=== PATIENT | male | born 2000 | race Caucasian/White ===

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

== ENCOUNTER 2020-01-28 00:18 | Emergency (ER) | payer OTHER, BC ==
[~2020-01-28] VITALS: Ht 185 cm; Wt 103.4 kg
[~2020-01-28 00:18] MED LIST: ACHD5005 PO
--- OUTSIDE RECORDS SUMMARY | 2020-01-28 00:28 | XMS REPORT ---
Author Author Yasmani Matthews Doctor Organization [facility] Address Unknown Phone Unavailable Care Team Providers Care Technical Project Coordinator Name Role Phone Migration, Doctor Unavailable Unavailable PROBLEMS Type Condition ICD9-CM Code [id number] Code Onset Dates Condition S tatus SNOMED Code Problem Need for prophylactic vaccination and inoculation, Influen za V04.81 Active 281584406 Problem MENINGOCOCCAL DX V03.89 Active 235 76434 Problem GARDASIL (HPV) DX V04.89 Active 42 1043625 ALLERGIES No Information ENCOUNTERS Encounter Location Date Diagnosis [facility] [address] [address] Sep, [facility] [address] [place] [phone] 16 Apr, 2016 Encounter for immunization Z 23 [facility] [address] [address] 14 Apr, 2016 Poison felecia dermatitis L23.7 [place] [address] [address] Dec, Poison felecia dermatitis L23.7 [facility] [address] [place] [phone] Dec, Irritant contact dermatitis due to plants, except food L24.7 and Bradycardia R00.1 [facility] [address] [place] [id number] [address] [place] [phone] 09 Sep, 2015 Dermatitis due to plants, in cluding poison felecia, sumac, and oak L25.5 [place] [id number] [address] [place] [address] 17 Jan, 2015 Routine child health exam V2 0.2 ; MENINGOCOCCAL DX V03.89 ; Sports physical V70.3 ; Exercise counseling V65.41 and Dietary counseling V65.3 [facility] [address] [id number] [address] [place] [address], [place] [address] Sep, [facility] [facility] [address] [id number] [address] [place] [phone] Sep, [facility] [address] [id number] [address] [place] [address], [place] [address] Apr, [facility] [address] [id number] [address] [place] [phone] Apr, [facility] [address] [id number] [address] [place] [address], [place] [address] October, [facility] [address] [id number] [address] [place] [phone] October, [facility] [address] [id number] [address] [place] [phone] Jul, [facility] [address] [id number] [address] [place] [phone] Jul, [facility] [address] [id number] [address] [place] [phone] Apr, [facility] [address] [id number] [address] [place] [phone] Apr, [facility] [address] [id number] [address] [place] [phone] Jan, [facility] [address] [id number] [address] [place] [phone] Mar, [facility] [address] [id number] [address] [place] [phone] Mar, [facility] [address] [id number] [address] [place] [phone] Jan, [facility] [address] [id number] [address] [place] [phone] Jul, [facility] [address] [id number] [address] [place] [phone] Jun, [facility] [address] [facility] [id number] [address] [place] [phone] Jan, [facility] [address] [facility] [id number] [address] [place] [phone] Apr, [facility] [address] [facility] [id number] [address] [place] [phone] Jan, [facility] [address] [facility] [id number] [address] [place] [phone] Mar, IMMUNIZATIONS No Known Immunizations SOCIAL HISTORY Never Assessed REASON FOR VISIT EMR[place] [place] PLAN OF CARE VITAL SIGNS MEDICATIONS Unknown Medications RESULTS No Results PROCEDURES No Known procedures INSTRUCTIONS MEDICATIONS ADMINISTERED No Known Medications MEDICAL (GENERAL) HISTORY Type Description Date Medical History ADHD Surgical History Double Hydrocele
--- OUTSIDE RECORDS SUMMARY | 2020-01-28 00:28 | XMS REPORT ---
Author Author Yasmani Matthews Doctor Organization [facility] Address Unknown Phone Unavailable Care Team Providers Care Boiler Tenders Supervisor Name Role Phone Migration, Doctor Unavailable Unavailable PROBLEMS Type Condition ICD9-CM Code [id number] Code Onset Dates Condition S tatus SNOMED Code Problem Need for prophylactic vaccination and inoculation, Influen za V04.81 Active 527594072 Problem MENINGOCOCCAL DX V03.89 Active 235 91102 Problem GARDASIL (HPV) DX V04.89 Active 42 [id number] ALLERGIES No Information ENCOUNTERS Encounter Location Date Diagnosis [facility] [address] [address] Sep, [facility] [address] [place] [phone] 16 Apr, 2016 Encounter for immunization Z 23 [facility] [address] [address] 14 Apr, 2016 Poison felecia dermatitis L23.7 [place] [address] [address] Dec, Poison felecia dermatitis L23.7 [facility] [address] [place] [phone] Dec, Irritant contact dermatitis due to plants, except food L24.7 and Bradycardia R00.1 [facility] [address] [place] [id number] [address] [place] [phone] 09 Sep, 2015 Dermatitis due to plants, in cluding poison felecia, sumac, and oak L25.5 [place] [id number] [address] [place] [address] 17 Jan, 2015 Routine child health exam V2 0.2 ; MENINGOCOCCAL DX V03.89 ; Sports physical V70.3 ; Exercise counseling V65.41 and Dietary counseling V65.3 [facility] [address] [id number] [address] [place] [address], [place] [address] Sep, [facility] [address] [id number] [address] [place] [phone] Sep, [facility] [address] [id number] [address] [place] [address], [place] [address] Apr, [facility] [address] [id number] [address] [place] [phone] Apr, [facility] [address] [id number] [address] [place] [address], [place] [address] October, [facility] [address] [id number] [address] [place] [phone] October, [facility] [address] [id number] [address] [place] [phone] Jul, [facility] [address] [id number] [address] [place] [phone] Jul, [facility] [address] [id number] [address] [place] [phone] Apr, [facility] [address] [id number] [address] [place] [phone] Apr, [facility] [address] [id number] [address] [place] [phone] Jan, [facility] [address] [id number] [address] [place] [phone] Mar, [facility] [address] [id number] [address] [place] [phone] Mar, [facility] [address] [id number] [address] [place] [phone] Jan, [facility] [address] [id number] [address] [place] [phone] Jul, [facility] [address] [id number] [address] [place] [phone] Jun, [facility] [address] [facility] [id number] [address] [place] [phone] Jan, [facility] [address] [facility] [id number] [address] [place] [phone] Apr, [facility] [address] [facility] [id number] [address] [place] [phone] Jan, [facility] [address] [facility] [id number] [address] [place] [phone] Mar, IMMUNIZATIONS No Known Immunizations SOCIAL HISTORY Never Assessed REASON FOR VISIT [facility] PLAN OF CARE VITAL SIGNS MEDICATIONS Medication Instructions Dosage Frequency Start Date End Date Duration S tatus Concerta 54 mg 1 tablet by Oral route 1 time per dayfor ADHD Mar, Active RESULTS No Results PROCEDURES No Known procedures INSTRUCTIONS MEDICATIONS ADMINISTERED No Known Medications MEDICAL (GENERAL) HISTORY Type Description Date Medical History ADHD Surgical History Double Hydrocele
--- OUTSIDE RECORDS SUMMARY | 2020-01-28 00:28 | XMS REPORT ---
Author Author Yasmani PRADHAN Organization [facility] Address [address] [place] [address] Care Team Providers Care Installation Superintendent Name Role Phone CAROLYNNHERRERAAN Unavailable PROBLEMS Type Condition ICD9-CM Code [id number] Code Onset Dates Condition S tatus SNOMED Code Problem Need for prophylactic vaccination and inoculation, Influen za V04.81 Active [id number] Problem MENINGOCOCCAL DX V03.89 Active 235 44147 Problem GARDASIL (HPV) DX V04.89 Active 42 [id number] ALLERGIES No Information ENCOUNTERS Encounter Location Date Diagnosis [facility] [address] [address] Sep, [facility] [address] [address] 16 Apr, 2016 Encounter for immunization Z 23 [facility] [address] [address] 14 Apr, 2016 Poison felecia dermatitis L23.[address] [address] Dec, Poison felecia dermatitis L23.7 [facility] [address] [address] 18 Dec, 2015 Irritant contact dermatitis due to plants, except food L24.7 and Bradycardia R00.1 [facility] [address] [address] 09 Sep, 2015 Dermatitis due to plants, in cluding poison felecia, sumac, and oak L25.[address] [address] Jan, Routine child health exam V2 0.2 ; MENINGOCOCCAL DX V03.89 ; Sports physical V70.3 ; Exercise counseling V65.41 and Dietary counseling V65.3 [facility] [address] [id number] [address] [place] [address] 14 Sep, 2014 [facility] [address] [id number] [address] [place] [address] Sep, [facility] [address] [id number] [address] [place] [address] Apr, [facility] [address] [id number] [address] [place] [address] Apr, [facility] [address] [id number] [address] [place] [phone] October, [facility] [address] [id number] [address] [place] [phone] October, [facility] [address] [id number] [address] [place] [address] Jul, [facility] [address] [id number] [address] [place] [phone] Jul, [facility] [address] [id number] [address] [place] [address] Apr, [facility] [address] [id number] [address] [place] [phone] Apr, [facility] [address] [id number] [address] [place] [phone] Jan, [facility] [address] [id number] [address] [place] [address] Mar, [facility] [address] [id number] [address] [place] [phone] Mar, [facility] [address] [id number] [address] [place] [phone] Jan, [facility] [address] [id number] [address] [place] [phone] Jul, [facility] [address] [facility] [id number] [address] [place] [address] Jun, [facility] [address] [facility] [id number] [address] [place] [phone] Jan, [facility] [address] [facility] [id number] [address] [place] [phone] Apr, [facility] [address] [facility] [id number] [address] [place] [phone] Jan, [facility] [address] [facility] [id number] [address] [place] [address] Mar, IMMUNIZATIONS Vaccine Route Administration Date Status GARDASIL (HPV-3 DOSE) Unknown Apr 21, 2013 Administer ed SOCIAL HISTORY Never Assessed REASON FOR VISIT PLAN OF CARE VITAL SIGNS Height 73 in 2013-04-21 Weight 179.54 lbs 2013-04-21 Temperature 98.8 degrees Fahrenheit 2013-04-21 Heart Rate 79 bpm 2013-04-21 Respiratory Rate 20 2013-04-21 Blood pressure systolic 129 mmHg 2013-04-21 Blood pressure diastolic 82 mmHg 2013-04-21 MEDICATIONS Unknown Medications RESULTS No Results PROCEDURES No Known procedures INSTRUCTIONS MEDICATIONS ADMINISTERED No Known Medications MEDICAL (GENERAL) HISTORY Type Description Date Medical History ADHD Surgical History Double Hydrocele
--- OUTSIDE RECORDS SUMMARY | 2020-01-28 00:28 | XMS REPORT ---
Author Author Yasmani Matthews Doctor Organization [facility] Address Unknown Phone Unavailable Care Team Providers Care Steam Conditioning Operator Name Role Phone Migration, Doctor Unavailable Unavailable PROBLEMS Type Condition ICD9-CM Code [id number] Code Onset Dates Condition S tatus SNOMED Code Problem Need for prophylactic vaccination and inoculation, Influen za V04.81 Active 977604410 Problem MENINGOCOCCAL DX V03.89 Active 235 51014 Problem GARDASIL (HPV) DX V04.89 Active 42 8404190 ALLERGIES No Information ENCOUNTERS Encounter Location Date Diagnosis [facility] [address] [address] Sep, [facility] [address] [place] [address] 16 Apr, 2016 Encounter for immunization Z 23 [facility] [address] [address] 14 Apr, 2016 Poison felecia dermatitis L23.7 [place] [address] [address] Dec, Poison felecia dermatitis L23.7 [facility] [address] [place] [address] Dec, Irritant contact dermatitis due to plants, except food L24.7 and Bradycardia R00.1 [facility] [address] [place] [id number] [address] [place] [address] 09 Sep, 2015 Dermatitis due to plants, in cluding poison felecia, sumac, and oak L25.5 [place] [id number] [address] [place] [address] 17 Jan, 2015 Routine child health exam V2 0.2 ; MENINGOCOCCAL DX V03.89 ; Sports physical V70.3 ; Exercise counseling V65.41 and Dietary counseling V65.3 [facility] [address] [id number] [address] [place] [address], [place] [address] Sep, [facility] [address] [id number] [address] [place] [address] Sep, [facility] [address] [id number] [address] [place] [address], [place] [address] Apr, [facility] [address] [id number] [address] [place] [address] Apr, [facility] [address] [id number] [address] [place] [address], [place] [address] October, [facility] [address] [id number] [address] [place] [phone] October, [facility] [address] [id number] [address] [place] [phone] Jul, [facility] [address] [id number] [address] [place] [phone] Jul, [facility] [address] [id number] [address] [place] [phone] Apr, [facility] [address] [id number] [address] [place] [phone] Apr, [facility] [address] [id number] [address] [place] [phone] Jan, [facility] [address] [id number] [address] [place] [phone] Mar, [facility] [address] [id number] [address] [place] [phone] Mar, [facility] [address] [id number] [address] [place] [phone] Jan, [facility] [address] [id number] [address] [place] [phone] Jul, [facility] [address] [id number] [address] [place] [phone] Jun, [facility] [address] [facility] [id number] [address] [place] [phone] Jan, [facility] [address] [facility] [id number] [address] [place] [phone] Apr, [facility] [address] [facility] [id number] [address] [place] [phone] Jan, [facility] [address] [facility] [id number] [address] [place] [phone] Mar, IMMUNIZATIONS No Known Immunizations SOCIAL HISTORY Never Assessed REASON FOR VISIT [place] [place] VITAL SIGNS MEDICATIONS Unknown Medications RESULTS No Results PROCEDURES No Known procedures INSTRUCTIONS MEDICATIONS ADMINISTERED No Known Medications MEDICAL (GENERAL) HISTORY Type Description Date Medical History ADHD Surgical History Double Hydrocele
--- OUTSIDE RECORDS SUMMARY | 2020-01-28 00:28 | XMS REPORT ---
Author Author Yasmani Sainz Organization [facility] Address [address] [place] [address] Care Team Providers Care Roster Clerk Name Role Phone CARO Sainz Unavailable PROBLEMS Type Condition ICD9-CM Code [id number] Code Onset Dates Condition S tatus SNOMED Code Problem Need for prophylactic vaccination and inoculation, Influen za V04.81 Active 299542189 Problem MENINGOCOCCAL DX V03.89 Active 235 45813 Problem GARDASIL (HPV) DX V04.89 Active 42 [id number] ALLERGIES No Information ENCOUNTERS Encounter Location Date Diagnosis [facility] [address] [place] [phone] Sep, [facility] [address] [place] [address] 16 Apr, 2016 Encounter for immunization Z 23 [facility] [address] [place] [address] 14 Apr, 2016 Poison felecia dermatitis L23.7 [place] [id number] [place] [address] Dec, Poison felecia dermatitis L23.7 [facility] [address] [place] [address] 18 Dec, 2015 Irritant contact dermatitis due to plants, except food L24.7 and Bradycardia R00.1 [facility] [address] [place] [address] 09 Sep, 2015 Dermatitis due to plants, in cluding poison felecai, sumac, and oak L25.[address] [address] Jan, Routine child health exam V20.2 ; MENING OCOCCAL DX V03.89 ; Sports physical V70.3 ; Exercise counseling V65.41 and Dietary counseling V65.3 [facility] [address] [place] [id number] [place] [address] 14 Sep, 2014 [facility] [address] [place] [id number] [place] [address] Sep, [facility] [address] [place] [id number] [place] [address] Apr, [facility] [address] [place] [id number] [place] [address] Apr, [facility] [address] [place] [id number] [place] [address] October, [facility] [address] [place] [id number] [place] [address] October, [facility] [address] [place] [id number] [place] [address] Jul, [facility] [address] [place] [id number] [place] [address] Jul, [facility] [address] [place] [id number] [place] [address] Apr, [facility] [address] [place] [id number] [place] [address] Apr, [facility] [address] [place] [id number] [place] [address] Jan, [facility] [address] [place] [id number] [place] [address] Mar, [facility] [address] [place] [id number] [place] [address] Mar, [facility] [address] [place] [id number] [place] [address] Jan, [facility] [address] [place] [id number] [place] [address] Jul, [facility] [address] [place] [id number] [place] [address] Jun, [facility] [address] [id number] [place] [address] Jan, [facility] [address] [id number] [place] [address] Apr, [facility] [address] [id number] [place] [address] Jan, [facility] [address] [id number] [place] [address] Mar, IMMUNIZATIONS Vaccine Route Administration Date Status PRIVATE MENINGOCOCCAL (MENACTRA) Unknown October 27, 2013 Administered GARDASIL (HPV-3 DOSE) Unknown October 27, 2013 Administer ed SOCIAL HISTORY Never Assessed REASON FOR VISIT PLAN OF CARE VITAL SIGNS MEDICATIONS Unknown Medications RESULTS No Results PROCEDURES No Known procedures INSTRUCTIONS MEDICATIONS ADMINISTERED No Known Medications MEDICAL (GENERAL) HISTORY Type Description Date Medical History ADHD Surgical History Double Hydrocele
--- OUTSIDE RECORDS SUMMARY | 2020-01-28 00:28 | XMS REPORT ---
Author Author Yasmani Bertrand Organization [facility] Address [address] [place] [address] Care Team Providers Care Flight Control Tower Operator Name Role Phone ТАТЬЯНА Bertrand Unavailable PROBLEMS Type Condition ICD9-CM Code [id number] Code Onset Dates Condition S tatus SNOMED Code Problem Need for prophylactic vaccination and inoculation, Influen za V04.81 Active 997009745 Problem MENINGOCOCCAL DX V03.89 Active 235 86373 Problem GARDASIL (HPV) DX V04.89 Active 42 [id number] ALLERGIES No Information ENCOUNTERS Encounter Location Date Diagnosis [facility] [address] [place] [phone] Sep, [facility] [address] [address] 16 Apr, 2016 Encounter for immunization Z 23 [facility] [address] [address] 14 Apr, 2016 Poison felecia dermatitis L23.[address] [address] Dec, Poison felecia dermatitis L23.7 [facility] [address] [address] 18 Dec, 2015 Irritant contact dermatitis due to plants, except food L24.7 and Bradycardia R00.1 [facility] [address] [address] 09 Sep, 2015 Dermatitis due to plants, in cluding poison felecia, sumac, and oak L25.[address] [address] Jan, Routine child health exam V2 0.2 ; MENINGOCOCCAL DX V03.89 ; Sports physical V70.3 ; Exercise counseling V65.41 and Dietary counseling V65.3 [facility] [address] [id number] [address] [place] [address] 14 Sep, 2014 [facility] [address] [id number] [address] [place] [address] Sep, [facility] [address] [id number] [address] [place] [address] Apr, [facility] [address] [id number] [address] [place] [address] Apr, [facility] [address] [id number] [address] [place] [address] October, [facility] [address] [id number] [address] [place] [address] October, [facility] [address] [id number] [address] [place] [address] Jul, [facility] [address] [id number] [address] [place] [address] Jul, [facility] [address] [id number] [address] [place] [address] Apr, [facility] [address] [id number] [address] [place] [address] Apr, [facility] [address] [id number] [address] [place] [address] Jan, [facility] [address] [id number] [address] [place] [address] Mar, [facility] [address] [id number] [address] [place] [address] Mar, [facility] [address] [id number] [address] [place] [address] Jan, [facility] [address] [id number] [address] [place] [address] Jul, [facility] [address] [facility] [id number] [address] [place] [address] Jun, [facility] [address] [facility] [id number] [address] [place] [address] Jan, [facility] [address] [facility] [id number] [address] [place] [address] Apr, [facility] [address] [facility] [id number] [address] [place] [address] Jan, [facility] [address] [facility] [id number] [address] [place] [address] Mar, IMMUNIZATIONS No Known Immunizations SOCIAL HISTORY Never Assessed REASON FOR VISIT PLAN OF CARE VITAL SIGNS Height 73 in 2014-04-29 Weight 201.44 lbs 2014-04-29 Temperature 98.5 degrees Fahrenheit 2014-04-29 Heart Rate 74 bpm 2014-04-29 Respiratory Rate 18 2014-04-29 Blood pressure systolic 142 mmHg 2014-04-29 Blood pressure diastolic 89 mmHg 2014-04-29 MEDICATIONS Unknown Medications RESULTS No Results PROCEDURES Procedure Date Ordered Result Body Site AUDIOMETRY-SCREEN Apr 29, 2014 INSTRUCTIONS MEDICATIONS ADMINISTERED No Known Medications MEDICAL (GENERAL) HISTORY Type Description Date Medical History ADHD Surgical History Double Hydrocele
--- OUTSIDE RECORDS SUMMARY | 2020-01-28 00:28 | XMS REPORT | Continuity of Care Document ---
Author Organization Unknown Address Unknown Phone Unavailable Allergies Active Description Code Type Severity Reaction Onset Reported/Identified Relationship to Patient Clinical Status Yes No Known Drug Allergies [id number] Drug Allergy Unknown N/A 09/12/2016 Medications There is no data. Problems Date Dx Coded Attending Type Code Diagnosis Diagnosed By 03/10/2008 IVONE PRADHAN MD 372.30 Conjunctivitis Unspecified 03/10/2008 DIANE WHITTINGTON DO 372.30 Conjunctivitis Unspecified 03/10/2008 CARO OHARA APRN 372.30 Conjunctivitis Unspecified 03/10/2008 ТАТЬЯНА ROD DO 372. 30 Conjunctivitis Unspecified 03/24/2008 IVONE PRADHAN MD V58.69 MEDICATION HIGH RISK 03/24/2008 DIANE WHITTINGTON DO V58.69 MEDICATION HIGH RISK 03/24/2008 CARO OHARA APRN V58.69 MEDICATION HIGH RISK 03/24/2008 ТАТЬЯНА ROD DO V58. 69 MEDICATION HIGH RISK 05/04/2008 IVONE PRADHAN MD 558.9 Gastroenteritis Noninfectious 05/04/2008 DIANE WHITTINGTON DO 558.9 Gastroenteritis Noninfectious 05/04/2008 CARO OHARA APRN A 558.9 Gastroenteritis Noninfectious 05/04/2008 ТАТЬЯНА ROD DO 558. 9 Gastroenteritis Noninfectious 03/13/2009 IVONE PRADHAN MD 314.00 ADHD, PREDOMINANTLY INATTENTIVE TYPE 03/13/2009 IVONE PRADHAN MD V20.2 ROUTINE OR CHILD HEALTH CHECK 03/13/2009 DIANE WHITTINGTON DO 314.00 ADHD, PREDOMINANTLY INATTENTIVE TYPE 03/13/2009 DIANE WHITTINGTON DO V20.2 ROUTINE INFANT OR CHILD HEALTH CHECK 03/13/2009 CARO OHARA APRN 314.00 ADHD, PREDOMINANTLY INATTENTIVE TYPE 03/13/2009 CARO OHARA APRN A V20.2 ROUTINE OR CHILD HEALTH CHECK 03/13/2009 ТАТЬЯНА ROD DO 314. 00 ADHD, PREDOMINANTLY INATTENTIVE TYPE 03/13/2009 ТАТЬЯНА ROD DO A V20. 2 ROUTINE INFANT OR CHILD HEALTH CHECK 04/11/2009 CAROLYNN ANDERSON, IVONE 692.6 Contact Dermatitis Due To Plants Poison Jyothi 04/11/2009 DIANE WHITTINGTON DO 692.6 Contact Dermatitis Due To Plants Poison Jyothi 04/11/2009 CARO OHARA APRN 692.6 Contact Dermatitis Due To Plants Poison Jyothi 04/11/2009 ТАТЬЯНА ROD DO 692. 6 Contact Dermatitis Due To Plants Poison Jyothi 01/28/2011 CAROLYNN ANDERSON, IVONE V70.3 Sports/school Exam 01/28/2011 DIANE WHITTINGTON DO V70.3 Sports/school Exam 01/28/2011 CARO OHARA APRN V70.3 Sports/school Exam 01/28/2011 ТАТЬЯНА ROD DO V70. 3 Sports/school Exam 04/21/2013 CAROLYNN ANDERSON, IVONE V04.81 FLU SHOT 04/21/2013 DIANE WHITTINGTON DO V04.81 FLU SHOT 04/21/2013 CARO OHARA APRN V04.81 FLU SHOT 04/21/2013 ТАТЬЯНА ROD DO A V04. 81 FLU SHOT 07/21/2013 DIANE WHITTINGTON DO V04.89 GARDASIL (HPV) DX 07/21/2013 CARO OHARA APRN V04.89 GARDASIL (HPV) DX 07/21/2013 ТАТЬЯНА ROD DO V04. 89 GARDASIL (HPV) DX 10/27/2013 CARO OHARA APRN V03.89 MENINGOCOCCAL DX 10/27/2013 ТАТЬЯНА ROD DO V03. 89 MENINGOCOCCAL DX 09/12/2016 LING GOLDEN DO Ot H16.133 PHOTOKERATITIS, BILATERAL 09/12/2016 LING GOLDEN DO Ot H57.9 UNSPECIFIED DISORDER OF EYE AND ADNEXA 09/18/2016 LING GOLDEN DO Ot H16.133 PHOTOKERATITIS, BILATERAL 09/18/2016 LING GOLDEN DO Ot H57.9 UNSPECIFIED DISORDER OF EYE AND ADNEXA Procedures Code [place] [address] PURE TONE HEARING TEST AIR 04/29/2014 Results There is no data. Encounters ACCT No. Visit Date/Time Discharge Status Pt. Type Provider Facility Loc./Unit Complaint [id number] 04/29/2014 14:06:00 04/29/2014 23:59: 59 CLS Outpatient ТАТЬЯНА ROD DO [id number] 10/27/2013 15:12:00 10/27/2013 23:59: 59 CLS Outpatient CARO OHARA APRN [id number] 07/21/2013 16:16:00 07/21/2013 23:59: 59 CLS Outpatient DIANE WHITTINGTON DO [id number] 04/21/2013 14:11:00 04/21/2013 23:59: 59 CLS Outpatient IVONE PRADHAN MD [id number] 09/12/2016 00:14:00 017 00:55:00 DIS Emergency [facility] ER LEFT RT EYE PAIN
--- OUTSIDE RECORDS SUMMARY | 2020-01-28 00:28 | XMS REPORT ---
Author Author Yasmani Matthews Doctor Organization [facility] Address Unknown Phone Unavailable Care Team Providers Care Corrugator Supervisor Name Role Phone Migration, Doctor Unavailable Unavailable PROBLEMS Type Condition ICD9-CM Code [id number] Code Onset Dates Condition S tatus SNOMED Code Problem Need for prophylactic vaccination and inoculation, Influen za V04.81 Active 668175849 Problem MENINGOCOCCAL DX V03.89 Active 235 83773 Problem GARDASIL (HPV) DX V04.89 Active 42 [id number] ALLERGIES No Information ENCOUNTERS Encounter Location Date Diagnosis [facility] [address] [place] [phone] Sep, [facility] [address] [place] [phone] 16 Apr, 2016 Encounter for immunization Z 23 [facility] [address] [place] [phone] 14 Apr, 2016 Poison felecia dermatitis L23.7 [place] [id number] [place] [phone] Dec, Poison felecia dermatitis L23.7 [facility] [address] [place] [address] Dec, Irritant contact dermatitis due to plants, except food L24.7 and Bradycardia R00.1 [facility] [address] [place] [phone] 09 Sep, 2015 Dermatitis due to plants, in cluding poison felecia, sumac, and oak L25.5 [facility] [address] [place] [id number] [place] [address] 17 Jan, 2015 Routine child health exam V20.2 ; MENING OCOCCAL DX V03.89 ; Sports physical V70.3 ; Exercise counseling V65.41 and Dietary counseling V65.3 [facility] [place] [address] [id number] [place] [address] 14 Sep, 2014 [facility] [address] [id number] [place] [address] Sep, [facility] [address] [id number] [place] [address] Apr, [facility] [id number] [place] [address] Apr, [facility] [address] [id number] [place] [address] October, [facility] [id number] [place] [address] October, [facility] [id number] [place] [address] Jul, [facility] [id number] [place] [address] Jul, [facility] [address] [id number] [place] [address] Apr, [facility] [id number] [place] [address] Apr, [facility] [id number] [place] [address] Jan, [facility] [place] [id number] [place] [address] Mar, [facility] [address] [id number] [place] [address] Mar, [facility] [address] [id number] [place] [address] Jan, [facility] [address] [id number] [place] [address] Jul, [facility] [address] [id number] [place] [address] Jun, [facility] [address] [id number] [place] [address] Jan, [facility] [address] [id number] [place] [address] Apr, [facility] [address] [id number] [place] [address] Jan, [facility] [address] [id number] [place] [address] Mar, IMMUNIZATIONS Vaccine Route Administration Date Status GARDASIL (HPV-3 DOSE) Unknown Jul 21, 2013 Administer ed SOCIAL HISTORY Never Assessed REASON FOR VISIT PLAN OF CARE VITAL SIGNS MEDICATIONS Unknown Medications RESULTS No Results PROCEDURES No Known procedures INSTRUCTIONS MEDICATIONS ADMINISTERED No Known Medications MEDICAL (GENERAL) HISTORY Type Description Date Medical History ADHD Surgical History Double Hydrocele
--- OUTSIDE RECORDS SUMMARY | 2020-01-28 00:28 | XMS REPORT ---
Author Author Yasmani PRADHAN Organization [facility] Address [address] [place] [address] Care Team Providers Care Prototype Deicer Assembler Name Role Phone NICOHERRERA MILLERAN Unavailable PROBLEMS Type Condition ICD9-CM Code VNT39-TW Code Onset Dates Condition S tatus SNOMED Code Problem MENINGOCOCCAL DX V03.89 Active 235 12408 Problem Need for prophylactic vaccination and inoculation, Influen za V04.81 Active 716036015 Problem GARDASIL (HPV) DX V04.89 Active 42 [id number] ALLERGIES No Information ENCOUNTERS Encounter Location Date Diagnosis [facility] [address] [address] Sep, [facility] [address] [address] 16 Apr, 2016 Encounter for immunization Z 23 [facility] [address] [address] 14 Apr, 2016 Poison felecia dermatitis L23.[address] [address] Dec, Poison felecia dermatitis L23.7 [facility] [address] [address] 18 Dec, 2015 Irritant contact dermatitis due to plants, except food L24.7 and Bradycardia R00.1 [facility] IN [address] [address] 09 Sep, 2015 Dermatitis due to plants, in cluding poison felecia, sumac, and oak L25.[address] [address] Jan, Routine child health exam V2 0.2 ; MENINGOCOCCAL DX V03.89 ; Sports physical V70.3 ; Exercise counseling V65.41 and Dietary counseling V65.3 [facility] [address] [id number] [address] [place] [address] 14 Sep, 2014 [facility] [address] [id number] [address] [place] [address] Sep, [facility] [address] [id number] [address] [place] [address] Apr, [facility] [address] [id number] [address] [place] [address] Apr, [facility] [address] [id number] [address] [place] [address] October, [facility] [address] [id number] [address] [place] [address] October, [facility] [address] [id number] [address] [place] [address] Jul, [facility] [address] [id number] [address] [place] [address] Jul, [facility] [address] [id number] [address] [place] [address] Apr, [facility] [address] [id number] [address] [place] [address] Apr, [facility] [address] [id number] [address] [place] [address] Jan, [facility] [address] [id number] [address] [place] [address] Mar, [facility] [address] [id number] [address] [place] [address] Mar, [facility] [address] [id number] [address] [place] [address] Jan, [facility] [address] [id number] [address] [place] [address] Jul, [facility] [address] [facility] [id number] [address] [place] [address] Jun, [facility] [address] [facility] [id number] [address] [place] [address] Jan, [facility] [address] [facility] [id number] [address] [place] [address] Apr, [facility] [address] [facility] [id number] [address] [place] [address] Jan, [facility] [address] [facility] [id number] [address] [place] [address] Mar, IMMUNIZATIONS No Known Immunizations SOCIAL HISTORY Never Assessed REASON FOR VISIT Triage PLAN OF CARE VITAL SIGNS MEDICATIONS Unknown Medications RESULTS No Results PROCEDURES No Known procedures INSTRUCTIONS MEDICATIONS ADMINISTERED No Known Medications MEDICAL (GENERAL) HISTORY Type Description Date Medical History ADHD Surgical History Double Hydrocele
--- OUTSIDE RECORDS SUMMARY | 2020-01-28 00:28 | XMS REPORT ---
Author Author Yasmani Matthews Doctor Organization [facility] Address Unknown Phone Unavailable Care Team Providers Care Brim Rounder Name Role Phone Migration, Doctor Unavailable Unavailable PROBLEMS Type Condition ICD9-CM Code VIZ36-SG Code Onset Dates Condition S tatus SNOMED Code Problem Need for prophylactic vaccination and inoculation, Influen za V04.81 Active 156812662 Problem MENINGOCOCCAL DX V03.89 Active 235 89647 Problem GARDASIL (HPV) DX V04.89 Active 42 [id number] ALLERGIES No Information ENCOUNTERS Encounter Location Date Diagnosis [facility] [address] [address] Sep, [facility] [address] [place] [address] 16 Apr, 2016 Encounter for immunization Z 23 [facility] [address] [address] 14 Apr, 2016 Poison felecia dermatitis L23.7 [place] [address] [address] Dec, Poison felecia dermatitis L23.7 [facility] [address] [place] [address] Dec, Irritant contact dermatitis due to plants, except food L24.7 and Bradycardia R00.1 [facility] [address] [place] [id number] [place] [address] 09 Sep, 2015 Dermatitis due to plants, in cluding poison felecia, sumac, and oak L25.5 [place] [id number] [place] [address] 17 Jan, 2015 Routine child health exam V2 0.2 ; MENINGOCOCCAL DX V03.89 ; Sports physical V70.3 ; Exercise counseling V65.41 and Dietary counseling V65.3 [facility] [address] [id number] [address] [place] [address], [place] [address] Sep, [facility] [address] [id number] [address] [place] [phone] Sep, [facility] [address] [id number] [address] [place] [address], [place] [address] Apr, [facility] [address] [id number] [address] [place] [phone] Apr, [facility] [address] [id number] [address] [place] [address], [place] [address] October, [facility] [address] [id number] [address] [place] [address] October, [facility] [address] [id number] [address] [place] [phone] Jul, [facility] [address] [id number] [address] [place] [phone] Jul, [facility] [address] [id number] [address] [place] [phone] Apr, [facility] [address] [id number] [address] [place] [address] Apr, [facility] [address] [id number] [address] [place] [phone] Jan, [facility] [address] [id number] [address] [place] [phone] Mar, [facility] [address] [id number] [address] [place] [phone] Mar, [facility] [address] [id number] [address] [place] [phone] Jan, [facility] [address] [id number] [address] [place] [phone] Jul, [facility] [address] [id number] [address] [place] [address] Jun, [facility] [address] [facility] [id number] [address] [place] [phone] Jan, [facility] [address] [facility] [id number] [address] [place] [phone] Apr, [facility] [address] [facility] [id number] [address] [place] [phone] Jan, [facility] [address] [facility] [id number] [address] [place] [phone] Mar, IMMUNIZATIONS No Known Immunizations SOCIAL HISTORY Never Assessed REASON FOR VISIT [place] VITAL SIGNS MEDICATIONS Unknown Medications RESULTS No Results PROCEDURES No Known procedures INSTRUCTIONS MEDICATIONS ADMINISTERED No Known Medications MEDICAL (GENERAL) HISTORY Type Description Date Medical History ADHD Surgical History Double Hydrocele
--- OUTSIDE RECORDS SUMMARY | 2020-01-28 00:28 | XMS REPORT ---
Author Author Keclon dba manager [facility] [place] [facility] Address [address] [address] Care Team Providers Care Resources Representative Name Role Phone BRAVO CASTELLANOS Unavailable Unavailable EYAD CH Unavailable Unavailable DIANE WHITTINGTON Unavailable Unavailable [facility] RONALD Unavailable IVONE PRADHAN Unavailable Migration, Doctor Unavailable Unavailable Migration, Doctor Unavailable Unavailable Migration, Doctor Unavailable Unavailable Migration, Doctor Unavailable Unavailable ТАТЬЯНА Bertrand Unavailable Migration, Doctor Unavailable Unavailable CARO Sainz Unavailable IVONE PRADHAN Unavailable Allergies Allergy Reported Allergen(s) Allergy Type Date of Reaction(s) Care Facility Classificati Onset Provider on Unclassified No Known Drug Allergies DA 09-12-2016 LING GOLDEN DO Not (3 sources) Available ([id number]) Encounters Encounter Date Encounter Type Encounter Diagnosis Care Provider Facility Start: Patient encounter LING GOLDEN DO Not Availab le ([id number]) 09-12-2016 procedure Medical Equipment No Information Goals No Information Immunizations The data below is from unstructured sources No Known Immunizations No Known Immunizations No Known Immunizations No Known Immunizations No Known Immunizations Interventions No Information Medications The data below is from unstructured sourcesNo Known Medications Unknown Medications Unknown Medications Unknown Medications Unknown Medications Unknown Medications Unknown Medications Unknown Medications Unknown Medications Unknown Medications Unknown Medications Unknown Medications No Known Medications No Known Medications No Known Medications No Known Medications No Known Medications No Known Medications No Known Medications No Known Medications No Known Medications No Known Medications Unknown Medications No Known Medications Payers No Information Plan of Treatment The data below is from unstructured sources Discharge Date 09/12/16 12:55am Disposition 01 HOME, SELF-CARE Condition at Discharge Improved Instructions/Education Provided [facility] How to Use Eye Ointment Forms Provided School/Childcare Rele ase Prescriptions See Medication Section [place] [facility] [place] Order Date: Primary Care Physician Address: [address] [place] [address] Note: [facility] [place] Order Date: Primary Care Physician Address: [address] [place] [address] Note: ANA MARÍA LOVETT OD Address: [place] [address] Additional Instructions/Education DO NOT RUB EYES IBUPROFEN 800 MG 4 TIMES A DAY FOR PAIN FOLLOW UP WITH DR. LOVETT TOMORROW AFTERNOON FOR RECHECK, OR RETURN TO ER IF UNAVAILABLE All discharge instructions reviewed with patient and/or family. Voiced understanding. Problems Problem Problem Date Last Documented Episodic/Chr Provider Classificati Recorded Date onic on Other eye Unspecified disorder of eye and LIS A CHANTEL DO disorders adnexa (3 sources) Procedures The data below is from unstructured sourcesNo procedure information available. No Known procedures No Known procedures No Known procedures No Known procedures No Known procedures No Known procedures No Known procedures No Known procedures No Known procedures No Known procedures No Known procedures No Known procedures Results The data below is from unstructured sourcesNo Known Results No Known Results No Known Results No Results No Results No Results No Results No Results No Results No Results No Results No Results No Results No Results No Results No Results No Results Social History No Information Vital Signs The data below is from unstructured sources Vital Response Date/Time Temperature (Fahrenheit) 97.2 degree s F (97.6 - 99.5) 09/12/2016 12:54am Temperature (Calculated Celsius) 36. 61580 degrees C (36.4 - 37.5) 09/12/2016 12:54am Temperature Source Temporal 09/12/2016 12:54am Pulse Rate (Adolescent 12-19yrs) 75 bpm (56 - 106) 09/12/2016 12:54am O2 Sat by Pulse Oximetry 99 % (88 - 100) 09/12/2016 12:54am Respiratory Rate (Adolescent 12-19yrs) 16 bpm (15 - 20) 09/12/2016 12:54am Blood Pressure / Blood Pressure Systolic (Adolescent 12-19yrs) 145 mm Hg (115 - 120) 09/12/2016 12:54am Pain Numeric Pain Scale 8 12:54am Height (Feet) 6 feet 12:23am Height (Inches) 1.00 inches 09/12/2016 12:23am Height (Calculated Centimeters) 185. 068561 cm 09/12/2016 12:23am Weight (Pounds) 210 pounds 09/12/2016 12:23am Weight (Calculated Kilograms) 95.254 399 kilograms 09/12/2016 12:23am Calculated BMI 21.09 12:23am Functional Status The data below is from unstructured sourcesNo functional status information available. Mental Status No Information Summary Purpose eClinicalWorks SubmissioneClinicalWorks Submission Advance Directives Directive Response Recor ded Date/Time Advance Directives No 12:23am Resuscitation Status Full Code 09/12/16 12:23am Discharge Instructions No hospital discharge instruction information available. Additional Source Comments This clinical document has been generated using [employer] software that has been certified by the Office of the National Coordinator for Health Information Technology (ONC 15.99.04.3023.Diam.31.00.0.816601) and the National Committee for Certified Shorthand Reporter (NCQA, as an eMeasure certified technology). FOR RECORDS PERTAINING TO PATIENTS WHO ARE OR HAVE BEEN ENROLLED IN A CHEMICAL D EPENDENCY/SUBSTANCE ABUSE PROGRAM, SOME INFORMATION MAY BE OMITTED. This clinica l summary was aggregated from multiple sources. Caution should be exercised in using it in the provision of clinical care. This summary normalizes information from multiple sources, and as a consequence, information in this document may ma terially change the coding, format and clinical context of patient data. In kati tion, data may be omitted in some cases. CLINICAL DECISIONS SHOULD BE BASED ON T HE PRIMARY CLINICAL RECORDS. [employer] provides no warranty or guara ntee of the accuracy or completeness of information in this document.The followi ng information is based on time limited clinical information UNRECOGNIZED CONTENT PROVIDED BELOW FOR UNRECOGNIZED SECTION MEDICAL (GENERAL) HISTORY Type Description Date Medical History ADHD Surgical History Double Hydrocele UNRECOGNIZED CONTENT PROVIDED BELOW FOR UNRECOGNIZED SECTION REASON FOR VISIT [facility] [place] [place]
[2020-01-28 00:33] VITALS: BP 136/113
[2020-01-28] MEDS ORDERED: LIDOCAINE 1% INJ 20 ML 20 ML VIAL ONE (00:40)
[2020-01-28] MEDS ORDERED: LIDOCAINE 2% 20 ML (XYLOCAINE) VIAL INJ ONE (00:45)
[2020-01-28] MEDS ORDERED: TETANUS,DIPTH,PERTUSS P/F (BOOSTRIX) 0.5 ML VIAL IM ONE (00:45)
--- NOTE | 2020-01-28 01:04 | ED Upper Extremity ---
General Chief Complaint: Laceration Stated Complaint: LEFT HAND LAC Nursing Triage Note: LEFT HAND LACERATION AT WORK. Nursing Sepsis Screen: No Definite Risk (PIERCE REINA MD) Source: patient Exam Limitations: no limitations (SHAVONNE COLÓN MED STUDENT) History of Present Illness Time Seen by Provider: 00:30 (PIERCE REINA MD) Date Seen by Provider: Jan 28, 2020 Initial Comments 19 year old male reports to ED with a left hand laceration. He states he cut his hand while working with angle-iron about 30 minutes ago. Last tetanus was over 5 years ago. Location Injury Occurred: dorsal surface of left hand Onset: just prior to arrival Severity: mild Pain/Injury Location: left hand Method of Injury: incised (SHAVONNE COLÓN MED STUDENT) Allergies and Home Medications Allergies Coded Allergies: No Known Drug Allergies (Unverified , 09/12/16) Home Medications No Active Prescriptions or Reported Meds Patient Home Medication List Home Medication List Reviewed: Yes (PIERCE REINA MD) Review of Systems Constitutional: no symptoms reported EENTM: no symptoms reported Respiratory: no symptoms reported Cardiovascular: no symptoms reported Gastrointestinal: no symptoms reported Genitourinary: no symptoms reported Musculoskeletal: no symptoms reported Skin: see HPI Psychiatric/Neurological: No Symptoms Reported (SHAVONNE COLÓN MED STUDENT) Past Ttoqyap-Aqmuui-Ysemhs Hx Patient Social History Alcohol Use: Rarely Uses Recreational Drug Use: No Smoking Status: Never a Smoker 2nd Hand Smoke Exposure: No Recent Foreign Travel: No Contact w/Someone Who Travel: No Recent Infectious Disease Expo: No Recent Hopitalizations: No (PIERCE REINA MD) Immunizations Up To Date Tetanus Booster (TDap): Unknown (PIERCE REINA MD) Seasonal Allergies Seasonal Allergies: No (PIERCE REINA MD) Past Medical History Surgeries: Yes (HYPOSPADIUS) Respiratory: No Cardiac: No Neurological: No Genitourinary: No Gastrointestinal: No Musculoskeletal: No Endocrine: No HEENT: No Cancer: No Psychosocial: No Integumentary: No Blood Disorders: No (PIERCE REINA MD) Physical Exam Vital Signs Vital Signs - First Documented 01/28/20 00:33 Temp 36.8 Pulse 91 Resp 18 B/P (MAP) 136/113 (121) Pulse Ox 97 O2 Delivery Room Air (SHAVONNE COLÓN MED STUDENT) Vital Signs Capillary Refill : Less Than 3 Seconds (PIERCE REINA MD) Height, Weight, BMI Height: 6'1.00" Weight: 210lbs. oz. [id number]; 30.00 BMI Method:Stated (PIERCE REINA MD) General Appearance: WD/WN, no apparent distress, other (Skin is soiled from working with angle iron) HEENT: PERRL/EOMI Neck: normal inspection Cardiovascular: regular rate, rhythm, no edema, no murmur Respiratory: no respiratory distress, no accessory muscle use Hand: Left (dorsal surface), laceration (3cm linear ) Neurologic/Tendon: normal sensation, normal motor functions, normal tendon functions Neurologic/Psychiatric: alert, normal mood/affect, oriented x 3 Skin: warm/dry, other (soiled) (SHAVONNE COLÓN MED STUDENT) Procedures/Interventions Wound Location: Other (left dorsal hand) Wound Length (cm): 3 Wound's Depth, Shape: superficial, linear Wound Explored: clean Betadine Prep?: Yes Anesthesia: 1% Lidocaine Volume Anesthetic (ccs): 4 Wound Debrided: minimal Suture: Prolene Suture Size: 4-0 Number of Sutures: 3 Sterile Dressing Applied?: Yes Progress Laceration sprayed with lidocaine, then scrubbed with chlorhexadine and gauze until clean, then irrigated with sterile saline. Wound was then prepped with betadine swabs and lidocaine was injected into each side of the laceration. 3 simple interrupted 4-0 prolene sutures were placed to approximate wound edges, and dressed with a large band-aid. (SHAVONNE COLÓN MED STUDENT) Progress/Results/Core Measures Results/Orders Medications Given in ED Current Medications Medications Dose Ordered Sig/Anthony Route Start Time Stop Time Status Last Admin Dose Admin Diphtheria/ Tetanus/Acell Pertussis 0.5 ml ONCE ONCE IM 01/28/20 00:45 01/28/20 00:46 DC 01/28/20 00:44 0.5 ML Lidocaine HCl 20 ml STK-MED ONCE .ROUTE 01/28/20 00:40 01/28/20 00:43 DC 01/28/20 00:44 20 ML (SHAVONNE COLÓN MED STUDENT) Vital Signs/I&O 8/14/20 00:33 Temp 36.8 Pulse 91 Resp 18 B/P (MAP) 136/113 (121) Pulse Ox 97 O2 Delivery Room Air (SHAVONNE COLÓN MED STUDENT) Blood Pressure Mean: 121 Departure Impression Primary Impression: Laceration of hand Qualified Codes: S61.412A - Laceration without foreign body of left hand, initial encounter Disposition: 01 HOME, SELF-CARE Condition: Improved Departure-Patient Inst. Decision time for Depature: 01:02 (PIERCE REINA MD) Referrals: [facility] [place]) Primary Care Physician Patient Instructions: Laceration Repair With Stitches (DC) Add. Discharge Instructions: Keep the wound clean and dry except for normal handwashing and showering. You may allow soapy water to run over the wound but do not scrub directly over the sutures. Do not submerge until sutures are removed and wound is completely closed over. Monitor for signs of infection such as increasing redness, inc reasing swelling, puslike drainage, or fever. Return to care promptly if you notice these symptoms. Keep wound covered when active or in dirty environments. Be careful of placing her hands in pockets or other tight places as well. May use Tylenol and/or ibuprofen for pain. All discharge instructions reviewed with patient and/or family. Voiced understanding. Scripts No Active Prescriptions or Reported Meds This patient was interviewed and examined by me personally along with Shavonne Colón, MS 4. I have reviewed MS 4 history, physical, assessment, and documentation and agree except where otherwise noted. Patient lacerated the dorsum of his left hand on a piece of angle iron. He is not up-to-date on his tetanus immunization. Wound was cleaned and approximated under my direct supervision. Tetanus immunization was provided. Exam: Gen.: Alert, oriented, no acute distress Heart: Regular rate and rhythm without murmur Lungs: Clear to auscultation with normal effort Extremities: 3 cm laceration on the dorsum of the left hand. Flexor and extensor functions of the left hand intact. (PIERCE REINA MD) PIERCE REINA MD Jan 28, 2020 01:04 SHAVONNE COLÓN,TYLER STUDENT Jan 28, 2020 01:10
== END 2020-01-28 01:15 | disposition home or self-care (01) ==
LOC: EDUNIT# 00:18 → ER 00:23
DX: S61.412A Laceration without foreign body of left hand, initial encounter (principal); Z23 Encounter for immunization; W26.8XXA Contact with other sharp object(s), not elsewhere classified, initial encounter; Y92.59 Other trade areas as the place of occurrence of the external cause; Y99.0 Civilian activity done for income or pay
CPT/HCPCS: 12001; 90715

== ENCOUNTER 2020-02-07 11:30 | Emergency (ER) | payer OTHER, BC ==
[~2020-02-07] VITALS: Ht 185.4 cm; Wt 97.9 kg
[2020-02-07 11:38] VITALS: BP 130/88
--- NOTE | 2020-02-07 11:50 | NUR ---
Area around sutures appears negro with small purulent area. Nestor Mauro notified.
[2020-02-07] MEDS ORDERED: AMOX-358 PO (11:53)
== END 2020-02-07 11:55 | disposition home or self-care (01) ==
LOC: EDUNIT# 11:30 → ER 11:32
DX: S61.412D Laceration without foreign body of left hand, subsequent encounter (principal); X58.XXXD Exposure to other specified factors, subsequent encounter